=== PATIENT | female | born 2000 | race Hispanic/Latino ===

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

== ENCOUNTER 2020-10-16 02:09 | Observation (INO) | payer MEDICAID ==
[~2020-10-16] VITALS: Ht 152.4 cm; Wt 83.9 kg
[2020-10-16 02:18] VITALS: BP 108/40
[2020-10-16 02:40] LABS: APPEARANCE,URINE Cloudy (CLEAR); BILIRUBIN,URINE Negative (NEGATIVE); COLOR,URINE Yellow (YELLOW); GLUCOSE, URINE (UA) 500 mg/dL (NEGATIVE); KETONES,URINE Trace mg/dL (NEGATIVE); LEUKOCYTE ESTERASE ,URINE Small (NEGATIVE); NITRATE,URINE Negative (NEGATIVE); OCCULT BLOOD,URINE Negative (NEGATIVE); PROTEIN,URINE Trace mg/dL (NEGATIVE)
[2020-10-16 03:13] LABS: AMPHET/METH SCREEN,URINE NEGATIVE (NEGATIVE); BARBITURATE SCREEN, URINE NEGATIVE (NEGATIVE); BENZODIAZEPINES SCREEN,URINE NEGATIVE (NEGATIVE); CANNABINOID SCREEN,URINE NEGATIVE (NEGATIVE); COCAINE SCREEN,URINE NEGATIVE (NEGATIVE); OPIATE SCREEN,URINE NEGATIVE (NEGATIVE); PHENCYCLIDINE SCREEN,URINE NEGATIVE (NEGATIVE)
[2020-10-16 03:28] LABS: RBC,URINE 0-1 /HPF (0-1); SQUAMOUS EPITHELIAL CELL,UR Moderate /HPF (0-2)
[2020-10-16 03:29] LABS: BACTERIA,URINE Moderate /HPF (None Seen)
[2020-10-16] MEDS ORDERED: ACETAMINOPHEN 500 MG TABLET PO ONE (04:00)
== END 2020-10-16 06:00 | disposition home or self-care (01) ==
LOC: EDH 02:09 → LDH 02:10
PROVIDERS: ADMIT Obstetrics & Gynecology; ATTEND Obstetrics & Gynecology
DX: O99.891 Other specified diseases and conditions complicating pregnancy (principal); M54.5 Low back pain; R10.2 Pelvic and perineal pain; Z3A.20 20 weeks gestation of pregnancy; Z79.899 Other long term (current) drug therapy
CPT/HCPCS: 59025; 80305; 81001; 87088; G0378 ×3

== ENCOUNTER 2021-01-28 18:04 | Observation (INO) | payer MEDICAID ==
[~2021-01-28] VITALS: Ht 152.4 cm; Wt 95.3 kg
[2021-01-28 18:05] VITALS: BP 104/58
[2021-01-28 18:47] LABS: APPEARANCE,URINE SL CLOUDY (CLEAR); BILIRUBIN,URINE NEGATIVE (NEGATIVE); COLOR,URINE YELLOW (YELLOW); GLUCOSE, URINE (UA) NEGATIVE (NEGATIVE); KETONES,URINE NEGATIVE (NEGATIVE); LEUKOCYTE ESTERASE ,URINE LARGE (NEGATIVE); NITRATE,URINE NEGATIVE (NEGATIVE); OCCULT BLOOD,URINE NEGATIVE (NEGATIVE); PH,URINE 6.5 (5.0-8.0); PROTEIN,URINE NEGATIVE (NEGATIVE); UROBILINOGEN,URINE 0.2 mg/dL (0.2-1.0)
[2021-01-28 19:14] LABS: AMPHET/METH SCREEN,URINE NEGATIVE (NEGATIVE); BARBITURATE SCREEN, URINE NEGATIVE (NEGATIVE); BENZODIAZEPINES SCREEN,URINE NEGATIVE (NEGATIVE); CANNABINOID SCREEN,URINE NEGATIVE (NEGATIVE); COCAINE SCREEN,URINE NEGATIVE (NEGATIVE); OPIATE SCREEN,URINE NEGATIVE (NEGATIVE); PHENCYCLIDINE SCREEN,URINE NEGATIVE (NEGATIVE)
[2021-01-28 19:18] LABS: BACTERIA,URINE Few /HPF (None Seen); RBC,URINE 0-1 /HPF (0-1); SQUAMOUS EPITHELIAL CELL,UR Moderate /HPF (0-2)
[2021-01-28 19:21] LABS: YEAST,URINE BUDDING Few /HPF (None Seen)
== END 2021-01-28 20:00 | disposition home or self-care (01) ==
LOC: EDH 18:04 → LDH 18:15 → UNDOADMOB 18:22 → LDH 18:22
PROVIDERS: ADMIT Obstetrics & Gynecology; ATTEND Obstetrics & Gynecology
DX: O62.9 Abnormality of forces of labor, unspecified (principal); O99.323 Drug use complicating pregnancy, third trimester; F12.90 Cannabis use, unspecified, uncomplicated; Z3A.35 35 weeks gestation of pregnancy; Z79.899 Other long term (current) drug therapy
CPT/HCPCS: 80305; 81001; 87088; G0378 ×2; G0379

== ENCOUNTER 2021-02-12 02:54 | Inpatient (IN) | payer MEDICAID ==
[~2021-02-12] VITALS: Ht 152.4 cm; Wt 97.1 kg
[2021-02-12] MEDS ORDERED: PREN-196 PO (03:11)
[2021-02-12 03:13] VITALS: BP 107/67
[2021-02-12 03:21] LABS: BILIRUBIN,URINE Negative (NEGATIVE); COLOR,URINE Yellow (YELLOW); GLUCOSE, URINE (UA) Negative (NEGATIVE); KETONES,URINE Negative (NEGATIVE); LEUKOCYTE ESTERASE ,URINE Small (NEGATIVE); NITRATE,URINE Negative (NEGATIVE); OCCULT BLOOD,URINE Small (NEGATIVE); PROTEIN,URINE Trace mg/dL (NEGATIVE)
[2021-02-12 03:22] LABS: APPEARANCE,URINE SLIGHTLY CLOUDY (CLEAR)
[2021-02-12 03:27] LABS: AMORPHOUS SEDIMENT,UR Few /LPF (None Seen); BACTERIA,URINE None Seen /HPF (None Seen); SQUAMOUS EPITHELIAL CELL,UR Few /HPF (0-2); WBC,URINE 0-1 /HPF (0-1)
[2021-02-12] MEDS ORDERED: LACTATED RINGERS 1000ML 1,000 ML IV PRN ×2 (03:30→04:00)
[2021-02-12] MEDS ORDERED: ROPIVACAINE 0.2% 100ML VIAL 100 ML EP SCH (04:00)
[2021-02-12] MEDS ORDERED: AMPICILLIN 2GM+NS 100ML 100 ML IV ONE (04:00)
[2021-02-12] MEDS ORDERED: EPHEDRINE SULFATE 50 MG/ML AMPULE IVP PRN (04:00)
[2021-02-12] MEDS ORDERED: LACTATED RINGERS 500 ML 500 ML IV PRN (04:00)
[2021-02-12] MEDS ORDERED: NALOXONE HCL 0.4 MG/1 ML ML IV PRN (04:00)
[2021-02-12 04:04] LABS: HEMATOCRIT 30.4 % (36-48); MEAN CORPUSCULAR HGB CONC 29.9 g/dL (32.0-36.0); NUCLEATED RED BLOOD CELLS 0.5 % (0.0-0.19); PLATELET COUNT (AUTO) 346 K/uL (130-400); RED BLOOD CELL COUNT(AUTO) 3.95 MIL/uL (4.00-5.50); RED CELL DISTRIBUTION WIDTH 15.9 % (11.0-15.5); WHITE BLOOD COUNT (AUTO) 12.7 K/uL (4.8-10.8)
[2021-02-12 04:12] LABS: AMPHET/METH SCREEN,URINE NEGATIVE (NEGATIVE); BARBITURATE SCREEN, URINE NEGATIVE (NEGATIVE); BENZODIAZEPINES SCREEN,URINE NEGATIVE (NEGATIVE); CANNABINOID SCREEN,URINE NEGATIVE (NEGATIVE); COCAINE SCREEN,URINE NEGATIVE (NEGATIVE); OPIATE SCREEN,URINE NEGATIVE (NEGATIVE); PHENCYCLIDINE SCREEN,URINE NEGATIVE (NEGATIVE)
[2021-02-12] MEDS ORDERED: OXYTOCIN-LR 20 UNITS/1000 ML 1,000 ML IV SCH ×2 (05:30→14:00)
[2021-02-12] MEDS ORDERED: MEPERIDINE-PF 50 MG/ML SYG ONE (05:57)
[2021-02-12] MEDS ORDERED: MEPERIDINE-PF 50 MG/ML SYG IVP PRN (06:00)
[2021-02-12] MEDS ORDERED: PROMETHAZINE HCL 25 MG/ML 1ML AMPULE IM PRN (06:00)
[2021-02-12] MEDS ORDERED: AMPICILLIN 1GM+NS 50ML 50 ML IV SCH (08:00)
[2021-02-12 11:07] LABS: RAPID PLASMA REAGIN NONREACTIVE (NONREACTIVE)
[2021-02-12] MEDS ORDERED: LIDOCAINE HCL 1% 20 ML VIAL ONE (12:30)
[2021-02-12] MEDS ORDERED: METHYLERGONOVINE MALEATE 0.2 MG/1 ML ML IM SCH (12:33)
[2021-02-12] MEDS ORDERED: MISOPROSTOL 200 MCG TABLET VG SCH (12:33)
[2021-02-12] MEDS ORDERED: METHYLERGONOVINE MALEATE 0.2 MG/1 ML ML ONE (12:39)
[2021-02-12] MEDS ORDERED: MISOPROSTOL 200 MCG TABLET ONE (12:40)
[2021-02-12] MEDS ORDERED: DIPH,PERTUSS(ACELL),TET VAC/PF 0.5 ML VIAL IM PRN (14:00)
[2021-02-12] MEDS ORDERED: WITCH HAZEL 1 PAD TP PRN (14:00)
[2021-02-12] MEDS ORDERED: LANOLIN 30GM OINTMENT TP PRN (14:00)
[2021-02-12] MEDS ORDERED: ACETAMINOPHEN 325 MG TAB PO PRN (14:00)
[2021-02-12] MEDS ORDERED: BENZOCAINE/LANOLIN/ALOE VERA 60 ML AEROSOL TP PRN (14:00)
[2021-02-12] MEDS ORDERED: MEASLES/MUMPS/RUBELLA VACCINE, LIVE 0.5 ML/VIAL SQ PRN (14:00)
[2021-02-12] MEDS: IBUPROFEN 600 MG TABLET PO PRN ×2 (14:50→20:50)
[2021-02-12 17:38] VITALS: BP 120/71
[2021-02-12 17:39] VITALS: BP 124/62
[2021-02-12] MEDS: ACETAMINOPHEN WITH CODEINE 1 TAB TAB PO PRN (18:43)
[2021-02-12 20:00] VITALS: BP 105/51
[2021-02-12] MEDS: DOCUSATE SODIUM 100 MG CAP PO SCH (20:30)
[2021-02-12 23:20] VITALS: BP 103/81
[2021-02-13] MEDS: ACETAMINOPHEN WITH CODEINE 1 TAB TAB PO PRN (01:15)
[2021-02-13 03:30] VITALS: BP 105/63
[2021-02-13 06:51] LABS: HEMATOCRIT 22.1 % (36-48); MEAN CORPUSCULAR HEMOGLOBIN 23.1 pg (27.0-33.0); MEAN CORPUSCULAR VOLUME 79.8 fL (80-100); RED BLOOD CELL COUNT(AUTO) 2.77 MIL/uL (4.00-5.50); RED CELL DISTRIBUTION WIDTH 16.1 % (11.0-15.5); WHITE BLOOD COUNT (AUTO) 17.9 K/uL (4.8-10.8)
[2021-02-13 07:26] VITALS: BP 102/59
[2021-02-13] MEDS: DOCUSATE SODIUM 100 MG CAP PO SCH (08:26)
[2021-02-13] MEDS: IBUPROFEN 600 MG TABLET PO PRN (08:26)
[2021-02-13 11:20] VITALS: BP 107/72
[2021-02-14 02:09] LABS: HEPATITIS Bs ANTIGEN SCREEN P Negative (Negative)
== END 2021-02-13 16:30 | disposition home or self-care (01) | DRG 560 ==
LOC: EDH 02:54 → LDH 02:55 → OBSVTOIN 02:56 → WSH 15:12
PROVIDERS: ADMIT Obstetrics & Gynecology; ATTEND Obstetrics & Gynecology
PROC: 10E0XZZ Delivery of Products of Conception, External Approach (ICD-10-PCS; principal; 2021-02-12)
PROC: 0KQM0ZZ Repair Perineum Muscle, Open Approach (ICD-10-PCS; 2021-02-12)
PROC: 3E0R3BZ Introduction of Anesthetic Agent into Spinal Canal, Percutaneous Approach (ICD-10-PCS; 2021-02-12)
PROC: 00HU33Z Insertion of Infusion Device into Spinal Canal, Percutaneous Approach (ICD-10-PCS; 2021-02-12)
DX: O24.425 Gestational diabetes mellitus in childbirth, controlled by oral hypoglycemic drugs (principal); E66.01 Morbid (severe) obesity due to excess calories; O66.0 Obstructed labor due to shoulder dystocia; O70.1 Second degree perineal laceration during delivery; O99.214 Obesity complicating childbirth; O99.02 Anemia complicating childbirth; D64.9 Anemia, unspecified; Z37.0 Single live birth; Z3A.37 37 weeks gestation of pregnancy
CPT/HCPCS: 36415; 80305; 81001; 82947; 85027; 86592; 86701; 86850; 86900; 86901; 87340; 87390; A4314; A4351; G0378; J0290; J2175; J2210; J2590; J2795

== ENCOUNTER 2022-02-05 16:12 | Emergency (ER) | payer MEDICAID ==
[~2022-02-05] VITALS: Ht 152.4 cm; Wt 83.5 kg
[2022-02-05 18:17] LABS: APPEARANCE,URINE CLEAR (CLEAR); BILIRUBIN,URINE NEGATIVE (NEGATIVE); COLOR,URINE YELLOW (YELLOW); GLUCOSE, URINE (UA) NEGATIVE (NEGATIVE); KETONES,URINE NEGATIVE (NEGATIVE); LEUKOCYTE ESTERASE ,URINE LARGE Leu/uL (NEGATIVE); NITRATE,URINE NEGATIVE (NEGATIVE); OCCULT BLOOD,URINE NEGATIVE (NEGATIVE); PROTEIN,URINE NEGATIVE (NEGATIVE)
[2022-02-05 18:20] LABS: BACTERIA,URINE Few /HPF (None Seen); RBC,URINE 0-1 /HPF (0-1)
[2022-02-05] MEDS ORDERED: CEFTRIAXONE 1G VIAL IM ONE (18:30)
[2022-02-05 18:33] LABS: BASOPHILS % (AUTO) 0.2 % (0.0-5.0); EOSINOPHILS % (AUTO) 0.4 % (0.0-8.0); HEMATOCRIT 34.3 % (36-48); LYMPHOCYTES % (AUTO) 16.9 % (21.0-51.0); MEAN CORPUSCULAR HEMOGLOBIN 25.4 pg (27.0-33.0); MEAN CORPUSCULAR HGB CONC 32.9 g/dL (32.0-36.0); MEAN CORPUSCULAR VOLUME 77.1 fL (80-100); MONOCYTES % (AUTO) 5.1 % (3.0-13.0); NEUTROPHILS % (AUTO) 77.1 % (40.0-77.0); PLATELET COUNT (AUTO) 332 K/uL (130-400); RED BLOOD CELL COUNT(AUTO) 4.45 MIL/uL (4.00-5.50); WHITE BLOOD COUNT (AUTO) 12.6 K/uL (4.8-10.8)
[2022-02-05] MEDS ORDERED: CEFTRIAXONE 1G VIAL ONE (18:40)
[2022-02-05 18:43] LABS: CREATININE 0.4 mg/dL (0.5-1.5); POTASSIUM 3.9 mmol/L (3.5-5.1)
[2022-02-05 19:13] LABS: ALBUMIN 2.9 g/dL (3.5-5.0); TOTAL PROTEIN, SERUM 7.1 g/dL (6.0-8.3)
[2022-02-05] MEDS ORDERED: CEPH500B PO (19:23)
[2022-02-05 19:35] VITALS: BP 124/76
== END 2022-02-05 19:41 | disposition home or self-care (01) ==
LOC: EDH 16:12
DX: O23.42 Unspecified infection of urinary tract in pregnancy, second trimester (principal); N39.0 Urinary tract infection, site not specified; Z3A.19 19 weeks gestation of pregnancy; W19.XXXA Unspecified fall, initial encounter; Y93.89 Activity, other specified; Y92.89 Other specified places as the place of occurrence of the external cause; Y99.8 Other external cause status
CPT/HCPCS: 99284; 76805; 80053; 84702; 85025; 86900; 86901; 87088; 81001; 36415; 96372; J0696

== ENCOUNTER 2022-05-31 18:11 | Observation (INO) | payer MEDICAID ==
[~2022-05-31] VITALS: Ht 152.4 cm; Wt 99.8 kg
[~2022-05-31 18:11] MED LIST changes: +CEPH500B PO
[2022-05-31 18:13] VITALS: BP 125/49
[2022-05-31 19:28] LABS: APPEARANCE,URINE CLOUDY (CLEAR); BILIRUBIN,URINE NEGATIVE (NEGATIVE); COLOR,URINE YELLOW (YELLOW); GLUCOSE, URINE (UA) 70 mg/dL (NEGATIVE); KETONES,URINE NEGATIVE (NEGATIVE); LEUKOCYTE ESTERASE ,URINE 500 Leu/uL (NEGATIVE); NITRATE,URINE NEGATIVE (NEGATIVE); OCCULT BLOOD,URINE NEGATIVE (NEGATIVE); PROTEIN,URINE 20 mg/dL (NEGATIVE); UROBILINOGEN,URINE 3 mg/dL (0.2-1.0)
[2022-05-31] MEDS ORDERED: LACTATED RINGERS 1000ML 1,000 ML IV SCH (19:30)
[2022-05-31 19:40] LABS: BACTERIA,URINE FEW /HPF (None Seen); MUCUS,URINE RARE LPF (None Seen); OTHER CASTS, URINE 1 /LPF (None Seen); SQUAMOUS EPITHELIAL CELL,UR MANY /HPF (0-2)
== END 2022-05-31 20:50 | disposition home or self-care (01) ==
LOC: EDH 18:11 → LDH 18:12
PROVIDERS: ADMIT Obstetrics & Gynecology; ATTEND Obstetrics & Gynecology
DX: O26.853 Spotting complicating pregnancy, third trimester (principal); O26.893 Other specified pregnancy related conditions, third trimester; R10.2 Pelvic and perineal pain; R10.30 Lower abdominal pain, unspecified; O24.419 Gestational diabetes mellitus in pregnancy, unspecified control; Z3A.35 35 weeks gestation of pregnancy
CPT/HCPCS: 96360; 87088; 81001; G0378 ×2; G0379; J7120

== ENCOUNTER 2022-06-11 21:29 | Observation (INO) | payer MEDICAID ==
[~2022-06-11] VITALS: Ht 152.4 cm; Wt 99.8 kg
[2022-06-11 21:32] VITALS: BP 115/72
[2022-06-11 21:58] LABS: APPEARANCE,URINE CLOUDY (CLEAR); BILIRUBIN,URINE NEGATIVE (NEGATIVE); COLOR,URINE LIGHT-YELLOW (YELLOW); GLUCOSE, URINE (UA) NEGATIVE (NEGATIVE); KETONES,URINE NEGATIVE (NEGATIVE); LEUKOCYTE ESTERASE ,URINE 500 Leu/uL (NEGATIVE); NITRATE,URINE NEGATIVE (NEGATIVE); PROTEIN,URINE 20 mg/dL (NEGATIVE)
[2022-06-11] MEDS ORDERED: LACTATED RINGERS 1000ML 1,000 ML IV SCH (22:00)
[2022-06-11 22:08] LABS: BACTERIA,URINE FEW /HPF (None Seen); MUCUS,URINE RARE LPF (None Seen); OTHER CASTS, URINE 5 /LPF (None Seen); SQUAMOUS EPITHELIAL CELL,UR MANY /HPF (0-2); WBC,URINE 51-100 /HPF (0-1); YEAST,URINE BUDDING FEW /HPF (None Seen)
[2022-06-11] MEDS ORDERED: TERBUTALINE SULFATE VIAL 1MG/ML SQ SCH (23:00)
== END 2022-06-12 02:31 | disposition home or self-care (01) ==
LOC: EDH 21:29 → LDH 21:30
PROVIDERS: ADMIT Obstetrics & Gynecology; ATTEND Obstetrics & Gynecology
DX: O99.891 Other specified diseases and conditions complicating pregnancy (principal); M54.50 Low back pain, unspecified; O26.893 Other specified pregnancy related conditions, third trimester; R10.2 Pelvic and perineal pain; R10.30 Lower abdominal pain, unspecified; Z3A.37 37 weeks gestation of pregnancy
CPT/HCPCS: 59025; 87088; 81001; 96372; 96360; G0378 ×5; G0379; J7120; J3105

== ENCOUNTER 2022-10-08 23:07 | Emergency (ER) | payer MEDICAID ==
[~2022-10-08] VITALS: Ht 152.4 cm; Wt 90.7 kg
[~2022-10-08 23:07] MED LIST changes: -CEPH500B PO; +PREN1TAB80 PO
[2022-10-08 23:09] VITALS: BP 106/66; PULSE 96; RESP 18
== END 2022-10-09 01:57 | disposition left against medical advice (07) ==
LOC: EDH 23:07
DX: M25.571 Pain in right ankle and joints of right foot (principal); M54.50 Low back pain, unspecified; M79.602 Pain in left arm; Z53.21 Procedure and treatment not carried out due to patient leaving prior to being seen by health care provider
CPT/HCPCS: 99281

== ENCOUNTER 2022-11-08 20:37 | Emergency (ER) | payer MEDICAID ==
[~2022-11-08] VITALS: Ht 152.4 cm; Wt 85.7 kg
[2022-11-08 22:46] LABS: APPEARANCE,URINE CLOUDY (CLEAR); BILIRUBIN,URINE NEGATIVE (NEGATIVE); COLOR,URINE YELLOW (YELLOW); GLUCOSE, URINE (UA) 150 mg/dL (NEGATIVE); KETONES,URINE 5 mg/dL (NEGATIVE); LEUKOCYTE ESTERASE ,URINE 500 Leu/uL (NEGATIVE); NITRATE,URINE NEGATIVE (NEGATIVE); OCCULT BLOOD,URINE NEGATIVE (NEGATIVE); PH,URINE 6.5 (5.0-8.0); PROTEIN,URINE 50 mg/dL (NEGATIVE); UROBILINOGEN,URINE 12 mg/dL (0.2-1.0)
[2022-11-08 23:00] LABS: ADD UA MICROSCOPIC YES
[2022-11-08 23:06] LABS: BACTERIA,URINE FEW /HPF (None Seen); MUCUS,URINE MANY LPF (None Seen); SQUAMOUS EPITHELIAL CELL,UR MANY /HPF (0-2)
[2022-11-08] MEDS ORDERED: CEPH500B PO (23:27)
[2022-11-08 23:33] VITALS: BP 112/65; PULSE 80; RESP 16; O2SAT 98
== END 2022-11-08 23:37 | disposition home or self-care (01) ==
LOC: EDH 20:37
DX: O23.41 Unspecified infection of urinary tract in pregnancy, first trimester (principal); N39.0 Urinary tract infection, site not specified; Z3A.01 Less than 8 weeks gestation of pregnancy
CPT/HCPCS: 81001; 81025; 87088

== ENCOUNTER 2023-04-20 19:55 | Observation (INO) | payer MEDICAID ==
[~2023-04-20] VITALS: Ht 152.4 cm; Wt 99.3 kg
[~2023-04-20 19:55] MED LIST changes: +CEPH500B PO
[2023-04-20 20:11] VITALS: BP 125/65; PULSE 114; RESP 20
[2023-04-20 20:39] LABS: ADD UA MICROSCOPIC YES; APPEARANCE,URINE CLOUDY (CLEAR); BILIRUBIN,URINE NEGATIVE (NEGATIVE); COLOR,URINE YELLOW (YELLOW); GLUCOSE, URINE (UA) 150 mg/dL (NEGATIVE); KETONES,URINE NEGATIVE (NEGATIVE); LEUKOCYTE ESTERASE ,URINE 500 Leu/uL (NEGATIVE); NITRATE,URINE NEGATIVE (NEGATIVE); OCCULT BLOOD,URINE NEGATIVE (NEGATIVE); PH,URINE 5.5 (5.0-8.0); PROTEIN,URINE 20 mg/dL (NEGATIVE); UROBILINOGEN,URINE 3 mg/dL (0.2-1.0)
[2023-04-20 20:42] LABS: BACTERIA,URINE FEW /HPF (None Seen); MUCUS,URINE RARE LPF (None Seen); SQUAMOUS EPITHELIAL CELL,UR MOD /HPF (0-2); WBC,URINE 51-100 /HPF (0-1); YEAST,URINE BUDDING FEW /HPF (None Seen)
[2023-04-20 20:46] LABS: AMPHET/METH SCREEN,URINE NEGATIVE (NEGATIVE); BARBITURATE SCREEN, URINE NEGATIVE (NEGATIVE); BENZODIAZEPINES SCREEN,URINE NEGATIVE (NEGATIVE); CANNABINOID SCREEN,URINE NEGATIVE (NEGATIVE); COCAINE SCREEN,URINE NEGATIVE (NEGATIVE); OPIATE SCREEN,URINE NEGATIVE (NEGATIVE); PHENCYCLIDINE SCREEN,URINE NEGATIVE (NEGATIVE)
[2023-04-20] MEDS ORDERED: TERBUTALINE SULFATE VIAL 1MG/ML SQ ONE (21:24)
[2023-04-20] MEDS ORDERED: TERBUTALINE SULFATE VIAL 1MG/ML SQ SCH (21:30)
[2023-04-20] MEDS ORDERED: LACTATED RINGERS 1000ML IV ONE (21:30)
== END 2023-04-20 22:40 | disposition home or self-care (01) ==
LOC: EDH 19:55 → LDH 20:23
PROVIDERS: ADMIT Obstetrics & Gynecology; ATTEND Obstetrics & Gynecology
DX: O26.893 Other specified pregnancy related conditions, third trimester (principal); R10.9 Unspecified abdominal pain; O99.891 Other specified diseases and conditions complicating pregnancy; M54.50 Low back pain, unspecified; Z3A.32 32 weeks gestation of pregnancy
CPT/HCPCS: 96372; 96360; 80305; 87088; 81001; G0378 ×2; G0379; J3105; J7120

== ENCOUNTER 2023-11-08 13:31 | Emergency (ER) | payer MEDICAID ==
[~2023-11-08] VITALS: Ht 152.4 cm; Wt 89.4 kg
[~2023-11-08 13:31] MED LIST changes: +DOCU-116 PO; +IBUP-2077 PO; +PREN1TAB26 PO
[2023-11-08 14:13] LABS: BASOPHILS # (AUTO) 0.02 K/uL (0.00-0.20); BASOPHILS % (AUTO) 0.3 % (0.0-5.0); EOSINOPHILS # (AUTO) 0.11 K/uL (0.00-0.70); EOSINOPHILS % (AUTO) 1.4 % (0.0-8.0); HEMATOCRIT 32.4 % (36-48); IMMATURE GRANULOCYTE ABSOLUTE 0.02 K/uL (0-1); LYMPHOCYTES # (AUTO) 2.4 K/uL (1.0-4.8); LYMPHOCYTES % (AUTO) 30.7 % (21.0-51.0); MEAN CORPUSCULAR VOLUME 68.8 fL (79-99); MONOCYTES # (AUTO) 0.5 K/uL (0.1-1.0); MONOCYTES % (AUTO) 6.5 % (3.0-13.0); NEUTROPHILS # (AUTO) 4.7 K/uL (1.8-7.7); NEUTROPHILS % (AUTO) 60.8 % (40.0-77.0); PLATELET COUNT (AUTO) 359 K/uL (130-400); RED BLOOD CELL COUNT(AUTO) 4.71 MIL/uL (4.00-5.50); RED CELL DISTRIBUTION WIDTH 19.8 % (11.0-15.5); WHITE BLOOD COUNT (AUTO) 7.7 K/uL (4.8-10.8)
[2023-11-08 14:27] LABS: CREATININE 0.4 mg/dL (0.5-1.0); POTASSIUM 3.6 mmol/L (3.5-5.1)
[2023-11-08 15:14] LABS: ADD UA MICROSCOPIC YES; APPEARANCE,URINE CLOUDY (CLEAR); BILIRUBIN,URINE NEGATIVE (NEGATIVE); COLOR,URINE YELLOW (YELLOW); GLUCOSE, URINE (UA) NEGATIVE (NEGATIVE); KETONES,URINE NEGATIVE (NEGATIVE); LEUKOCYTE ESTERASE ,URINE 75 Leu/uL (NEGATIVE); NITRATE,URINE NEGATIVE (NEGATIVE); OCCULT BLOOD,URINE LARGE (NEGATIVE); PH,URINE 6.5 (5.0-8.0); PROTEIN,URINE 20 mg/dL (NEGATIVE)
[2023-11-08 15:19] LABS: BACTERIA,URINE RARE /HPF (None Seen); MUCUS,URINE FEW LPF (None Seen); RBC,URINE 51-100 /HPF (0-1); SQUAMOUS EPITHELIAL CELL,UR FEW /HPF (0-2)
[2023-11-08 16:20] VITALS: BP 135/75; PULSE 78; RESP 18; O2SAT 98
== END 2023-11-08 16:25 | disposition home or self-care (01) ==
LOC: EDH 13:31
DX: N93.8 Other specified abnormal uterine and vaginal bleeding (principal); D64.9 Anemia, unspecified; R10.2 Pelvic and perineal pain; F17.200 Nicotine dependence, unspecified, uncomplicated; Z79.2 Long term (current) use of antibiotics; Z79.899 Other long term (current) drug therapy
CPT/HCPCS: 36415; 80048; 81001; 84702; 85025; 86850; 86900; 86901; 87086